=== PATIENT | female | born 1950 | race Caucasian/White ===

== ENCOUNTER 2018-11-11 12:44 | Emergency (ER) | payer BC, MEDICARE ==
[~2018-11-11] VITALS: Ht 172.7 cm; Wt 104.0 kg
[~2018-11-11 12:44] MED LIST: AMLO10TA59 PO; HYDR-3972 PO; HYDR25TA4 PO; LISI40TA4 PO; POTA8TAB3 PO
[2018-11-11] MEDS ORDERED: lactulose 20gm/30ml cup PO ONE (16:30)
[2018-11-11 16:34] VITALS: BP 106/57
== END 2018-11-11 17:36 | disposition home or self-care (01) ==
LOC: ER 12:44
DX: K64.8 Other hemorrhoids (principal); K59.00 Constipation, unspecified; K62.89 Other specified diseases of anus and rectum; G89.29 Other chronic pain; Z88.8 Allergy status to other drugs, medicaments and biological substances; Z79.899 Other long term (current) drug therapy
CPT/HCPCS: 74018; 99283

== ENCOUNTER 2019-06-30 16:57 | Inpatient (IN) | payer BC, MEDICARE ==
[2019-06-30] VITALS (7 sets, daily range): BP systolic 118–139; BP diastolic 62–94
[~2019-06-30] VITALS: Ht 175.3 cm; Wt 123.2 kg
[2019-06-30 17:39] LABS: BASOPHILS % (AUTO) 0.8 % (0-1); EOSINOPHILS # (AUTO) 0.1 X10'3 (0-0.9); EOSINOPHILS % (AUTO) 2.6 % (0-6); LYMPHOCYTES % (AUTO) 18.6 % (21-51); MEAN CORPUSCULAR HEMOGLOBIN 23.9 PG (27.0-31.0); MEAN CORPUSCULAR HGB CONC 29.8 g/dL (33.0-36.5); MEAN PLATELET VOLUME 8.7 FL (7.4-10.4); MONOCYTES # (AUTO) 0.5 X10'3 (0-0.9); NEUTROPHILS # (AUTO) 3.9 X10'3 (1.8-7.7); PLATELET COUNT 250 X10'3 (140-440); RED CELL DISTRIBUTION WIDTH 16.4 % (11.5-14.5); WHITE BLOOD COUNT 5.6 X10'3 (4.5-11.0)
[2019-06-30 17:46] LABS: HEMATOCRIT 19.2 % (35.0-45.0); HEMOGLOBIN 5.7 g/dl (12.0-16.0)
[2019-06-30 17:55] LABS: PARTIAL THROMBOPLASTIN TIME < 20 SECONDS (22-32)
[2019-06-30 18:05] LABS: ALANINE AMINOTRANSFERASE 15 U/L (12-78); ALBUMIN 2.9 G/DL (3.4-5.0); ALBUMIN/GLOBULIN RATIO 0.9 (1.1-1.5); ALKALINE PHOSPHATASE 64 IU/L (46-116); ANION GAP 9 (8-16); ASPARTATE AMINO TRANSFERASE 11 U/L (10-37); BILIRUBIN,TOTAL 0.2 MG/DL (0.1-1.0); BLOOD UREA NITROGEN 27 MG/DL (7-18); BUN/CREATININE RATIO 22.5 (6.6-38.0); CALCIUM 8.3 MG/DL (8.5-10.1); CHLORIDE 111 MMOL/L (99-107); GLUCOSE 86 MG/DL (70-104); POTASSIUM 4.3 MMOL/L (3.5-5.1); SODIUM 144 MMOL/L (135-145); TOTAL CARBON DIOXIDE 23.7 MMOL/L (24-32); TOTAL PROTEIN 6.1 G/DL (6.4-8.2); eGFR 45 ML/MIN
[2019-06-30] MEDS ORDERED: SITA50TA PO (18:33)
--- NOTE | 2019-06-30 18:34 | NUR ---
Patient is resting comfortably in bed with her son at the bedside. Patient placed in hospital gown and on NIBP, pulse ox, and secured entrance monitor. Patient has no needs at this time. Call weller provided.
--- NOTE | 2019-06-30 18:50 | NUR ---
Greer was sent to lab for units of blood. She was returned for concern that the blood consent was not actually signed by the provider and that there was no electronic consent ordered. The provider did in fact sign for the consent. Verbal order from Ritu to insert the digital consent order.
--- NOTE | 2019-06-30 19:23 | NUR ---
Patient resting comfortably and shows no signs of transfusion reaction. Blood rate of infusion set to 150mL/hr.
[2019-06-30 19:56] LABS: OCCULT BLOOD STOOL POSITIVE (Neg)
[2019-06-30] MEDS: normal saline 1000ml 1,000 ML IV SCH (20:27)
[2019-06-30] MEDS ORDERED: ondansetron/PF 4mg/2ml inj IV PRN (20:30)
[2019-06-30] MEDS ORDERED: magnesium Cl slow-release 64mg tablet PO PRN (20:30)
[2019-06-30] MEDS ORDERED: magnesium 2GM in 50ml NS 50 ML IV PRN (20:30)
[2019-06-30] MEDS ORDERED: potassium CL 10mEq/100ml bag 100 ML IV PRN ×2 (20:30)
[2019-06-30] MEDS ORDERED: potassium Cl 20 mEq SR tablet PO PRN ×2 (20:30)
[2019-06-30] MEDS ORDERED: magnesium 4gm in 100ml NS 100 ML IV PRN (20:30)
[2019-06-30] MEDS ORDERED: dextrose ORAL solution 15 GM/59 ML bottle PO PRN ×2 (20:35)
[2019-06-30] MEDS ORDERED: dextrose 50%-water 50ml dispensing syringe IV PRN ×2 (20:35)
[2019-06-30] MEDS ORDERED: enalaprilat dihydrate 2.5mg/2ml vial IV PRN (20:35)
[2019-06-30] MEDS ORDERED: MESSAGE TO PHARMACY PO ONE (20:35)
[2019-06-30] MEDS ORDERED: glucagon, human recombinant 1mg kit SUBCUT PRN (20:35)
[2019-06-30] MEDS ORDERED: insulin Lispro (HumaLOG) vial - multi-dose SQ SCH (20:35)
[2019-06-30 20:51] LABS: HEMOGLOBIN A1C 5.1 % (4.5-6.2)
[2019-06-30] MEDS: insulin glargine (Lantus) pen - multi-dose SQ SCH (21:00)
[2019-06-30 21:24] LABS: CLARITY,URINE SLIGHTLY CLOUDY (Clear); COLOR,URINE YELLOW (Yellow); GLUCOSE, URINE NEGATIVE (Neg); KETONES,URINE NEGATIVE (Neg); LEUKOCYTE ESTERASE ,URINE SMALL (Neg); NITRITES, URINE POSITIVE (Neg); OCCULT BLOOD,URINE SMALL (Neg); PROTEIN,URINE NEGATIVE (Neg); UROBILINOGEN,URINE 0.2 E.U/dL (0.2-1.0)
[2019-06-30] MEDS ORDERED: normal saline 1000ml 1,000 ML IV ONE (21:25)
[2019-06-30] MEDS ORDERED: iohexol 300mg/ml 100ml inj. ONE (21:29)
[2019-06-30 21:32] LABS: UA COLLECTION TYPE CLN CATCH MIDSTREAM
[2019-06-30 21:34] LABS: BACTERIA,URINE 4+ /HPF (Neg); RBC,URINE 0-2 /HPF (0-2); SQUAMOUS EPITHELIAL CELL,UR FEW /LPF (FEW)
--- NOTE | 2019-06-30 22:04 | NUR ---
Patient arrived to floor around 2200 on [facility] bed from ER. A&OX4., accompanied via her son.Timo. Patient is in no apparent distress at this time.
[2019-07-01] VITALS (8 sets, daily range): BP systolic 125–139; BP diastolic 61–80
[2019-07-01] MEDS: normal saline 1000ml 1,000 ML IV SCH ×3 (01:37→22:26)
[2019-07-01 04:57] LABS: OCCULT BLOOD STOOL NEGATIVE (Neg)
[2019-07-01 05:43] LABS: BASOPHILS % (AUTO) 0.6 % (0-1); EOSINOPHILS # (AUTO) 0.1 X10'3 (0-0.9); EOSINOPHILS % (AUTO) 2.6 % (0-6); HEMATOCRIT 24.3 % (35.0-45.0); HEMOGLOBIN 7.7 g/dl (12.0-16.0); LYMPHOCYTES % (AUTO) 19.5 % (21-51); MEAN CORPUSCULAR HEMOGLOBIN 25.5 PG (27.0-31.0); MEAN CORPUSCULAR HGB CONC 31.5 g/dL (33.0-36.5); MEAN CORPUSCULAR VOLUME 80.7 FL (78-98); MEAN PLATELET VOLUME 8.6 FL (7.4-10.4); MONOCYTES # (AUTO) 0.5 X10'3 (0-0.9); MONOCYTES % (AUTO) 8.4 % (2-12); NEUTROPHILS # (AUTO) 3.7 X10'3 (1.8-7.7); NEUTROPHILS % (AUTO) 68.9 % (42-75); PLATELET COUNT 222 X10'3 (140-440); RED BLOOD COUNT 3.01 X10'6 (4.20-5.60); RED CELL DISTRIBUTION WIDTH 16.4 % (11.5-14.5); WHITE BLOOD COUNT 5.4 X10'3 (4.5-11.0)
[2019-07-01 05:44] LABS: ALBUMIN 2.7 G/DL (3.4-5.0); ANION GAP 10 (8-16); BLOOD UREA NITROGEN 20 MG/DL (7-18); BUN/CREATININE RATIO 20.4 (6.6-38.0); CALCIUM 8.5 MG/DL (8.5-10.1); CHLORIDE 110 MMOL/L (99-107); CREATININE 0.98 MG/DL (0.40-0.90); GLUCOSE 95 MG/DL (70-104); POTASSIUM 3.8 MMOL/L (3.5-5.1); SODIUM 144 MMOL/L (135-145); TOTAL CARBON DIOXIDE 24.2 MMOL/L (24-32); eGFR 56 ML/MIN
--- NOTE | 2019-07-01 05:45 | NUR ---
Patient received 2 units of PRBC at 300cc each and 400cc NS.
--- NOTE | 2019-07-01 06:30 | NUR ---
Patient in room PCU 3018. I have received report from Destini PEACOCK and had the opportunity to ask questions and assume patient care.
--- NOTE | 2019-07-01 06:50 | NUR ---
Patient in room PCU 3018. I have received report from Destini PEACOCK and had the opportunity to ask questions and assume patient care. Patient asleep in bed. In no acute distress. Will continue to monitor.
--- NOTE | 2019-07-01 06:52 | NUR ---
Problems reprioritized. Patient report given, questions answered & plan of care reviewed with Markus PEACOCK.
[2019-07-01] MEDS: ESOMEPRAZOLE 40 MG VIAL IV SCH ×2 (08:48→19:13)
--- NOTE | 2019-07-01 08:48 | NUR ---
IV Nexium 40 mg administered using 2 patient identifiers. Computer did not save record of administration.
[2019-07-01] MEDS: K and/or MAG REPLACEMENT MC SCH (08:57)
[2019-07-01 09:51] LABS: HEMATOCRIT 23.3 % (35.0-45.0); HEMOGLOBIN 7.4 g/dl (12.0-16.0); MEAN CORPUSCULAR HEMOGLOBIN 25.5 PG (27.0-31.0); MEAN CORPUSCULAR HGB CONC 31.5 g/dL (33.0-36.5); MEAN CORPUSCULAR VOLUME 80.8 FL (78-98); MEAN PLATELET VOLUME 8.7 FL (7.4-10.4); PLATELET COUNT 196 X10'3 (140-440); RED BLOOD COUNT 2.88 X10'6 (4.20-5.60); RED CELL DISTRIBUTION WIDTH 15.9 % (11.5-14.5); WHITE BLOOD COUNT 4.6 X10'3 (4.5-11.0)
[2019-07-01] MEDS ORDERED: pneumococcal 23-VAL P-sac vacc 25 mcg/0.5ml vial IMVAC ONE (09:55)
[2019-07-01] MEDS ORDERED: FLUT16SP2 BOTHNARES (11:05)
[2019-07-01] MEDS ORDERED: LORazepam 2 mg/ml vial IV ONE ×2 (11:50→12:40)
--- NOTE | 2019-07-01 11:50 | NUR ---
New order from Dr. Martínez: 1 mg IV ativan. May repeat 30 minutes later if necessary for MRI.
--- NOTE | 2019-07-01 14:20 | NUR ---
WOUND INFECTION EDUCATION PROVIDED BY WOUND CARE 1. Patient instructed to call their primary doctor, or go the ED immediately if any of the following symptoms occur: * Increased pain in wound * Increase in drainage from the wound * Redness in the skin surrounding the wound * Warmth in the skin surrounding the wound * Bleeding from the wound * Temperature of 101 or greater 2. If any of these occur while in the hospital tell a nurse immediately. Addendum: 07/01/19 at 1423 by Reyna Morgan RN Amended: Links added.
[2019-07-01 15:03] LABS: HEMATOCRIT 22.5 % (35.0-45.0); HEMOGLOBIN 7.1 g/dl (12.0-16.0); MEAN CORPUSCULAR HEMOGLOBIN 25.7 PG (27.0-31.0); MEAN CORPUSCULAR HGB CONC 31.8 g/dL (33.0-36.5); MEAN CORPUSCULAR VOLUME 80.7 FL (78-98); MEAN PLATELET VOLUME 8.5 FL (7.4-10.4); PLATELET COUNT 197 X10'3 (140-440); RED BLOOD COUNT 2.78 X10'6 (4.20-5.60); RED CELL DISTRIBUTION WIDTH 16.5 % (11.5-14.5); WHITE BLOOD COUNT 4.7 X10'3 (4.5-11.0)
--- NOTE | 2019-07-01 18:33 | NUR ---
Problems reprioritized. Patient report given, questions answered & plan of care reviewed with Britton PEACOCK. Patient stable at transfer of care.
--- NOTE | 2019-07-01 18:34 | NUR ---
Patient in room PCU 3018. I have received report from AYUSH Marinelli and had the opportunity to ask questions and assume patient care.
[2019-07-01] MEDS: insulin glargine (Lantus) pen - multi-dose SQ SCH (21:00)
[2019-07-01] MEDS: CefTRIAXone/D5W-Rocephin 1gm 50 ML IV SCH (21:37)
[2019-07-01 21:45] LABS: HEMATOCRIT 23.1 % (35.0-45.0); HEMOGLOBIN 7.2 g/dl (12.0-16.0); MEAN CORPUSCULAR HEMOGLOBIN 25.3 PG (27.0-31.0); MEAN CORPUSCULAR HGB CONC 31.3 g/dL (33.0-36.5); MEAN PLATELET VOLUME 9.1 FL (7.4-10.4); PLATELET COUNT 186 X10'3 (140-440); RED BLOOD COUNT 2.86 X10'6 (4.20-5.60); RED CELL DISTRIBUTION WIDTH 16.1 % (11.5-14.5); WHITE BLOOD COUNT 5.2 X10'3 (4.5-11.0)
[2019-07-02] VITALS (8 sets, daily range): BP systolic 106–138; BP diastolic 59–74
[2019-07-02 03:25] LABS: BASOPHILS % (AUTO) 0.7 % (0-1); EOSINOPHILS # (AUTO) 0.2 X10'3 (0-0.9); EOSINOPHILS % (AUTO) 3.4 % (0-6); HEMATOCRIT 23.7 % (35.0-45.0); HEMOGLOBIN 7.4 g/dl (12.0-16.0); LYMPHOCYTES # (AUTO) 1.1 X10'3 (1.1-4.8); LYMPHOCYTES % (AUTO) 20.9 % (21-51); MEAN CORPUSCULAR HEMOGLOBIN 25.2 PG (27.0-31.0); MEAN CORPUSCULAR VOLUME 81.3 FL (78-98); MEAN PLATELET VOLUME 8.5 FL (7.4-10.4); MONOCYTES # (AUTO) 0.5 X10'3 (0-0.9); MONOCYTES % (AUTO) 8.5 % (2-12); NEUTROPHILS # (AUTO) 3.5 X10'3 (1.8-7.7); NEUTROPHILS % (AUTO) 66.5 % (42-75); PLATELET COUNT 212 X10'3 (140-440); RED BLOOD COUNT 2.92 X10'6 (4.20-5.60); RED CELL DISTRIBUTION WIDTH 16.2 % (11.5-14.5); WHITE BLOOD COUNT 5.3 X10'3 (4.5-11.0)
[2019-07-02 03:28] LABS: ALBUMIN 2.6 G/DL (3.4-5.0); ANION GAP 8 (8-16); BLOOD UREA NITROGEN 19 MG/DL (7-18); BUN/CREATININE RATIO 17.1 (6.6-38.0); CALCIUM 8.4 MG/DL (8.5-10.1); CHLORIDE 107 MMOL/L (99-107); CREATININE 1.11 MG/DL (0.40-0.90); GLUCOSE 118 MG/DL (70-104); MAGNESIUM 1.8 MG/DL (1.5-2.4); POTASSIUM 3.6 MMOL/L (3.5-5.1); SODIUM 141 MMOL/L (135-145); TOTAL CARBON DIOXIDE 25.9 MMOL/L (24-32); eGFR 49 ML/MIN
--- NOTE | 2019-07-02 06:12 | NUR ---
Problems reprioritized. Patient report given, questions answered & plan of care reviewed with AYUSH Marinelli.
--- NOTE | 2019-07-02 06:32 | NUR ---
Patient in room U 3018. I have received report from Britton PEACOCK and had the opportunity to ask questions and assume patient care. Patient asleep in bed. In no acute distress.
[2019-07-02 07:33] LABS: HEMATOCRIT 24.9 % (35.0-45.0); HEMOGLOBIN 7.8 g/dl (12.0-16.0); MEAN CORPUSCULAR HEMOGLOBIN 25.5 PG (27.0-31.0); MEAN CORPUSCULAR HGB CONC 31.5 g/dL (33.0-36.5); MEAN PLATELET VOLUME 8.6 FL (7.4-10.4); PLATELET COUNT 229 X10'3 (140-440); RED BLOOD COUNT 3.07 X10'6 (4.20-5.60); RED CELL DISTRIBUTION WIDTH 16.7 % (11.5-14.5); WHITE BLOOD COUNT 5.8 X10'3 (4.5-11.0)
[2019-07-02] MEDS ORDERED: non-formulary drug (Amlodipine Besylate 10 MG) PO SCH (08:00)
[2019-07-02] MEDS ORDERED: non-formulary drug (Lisinopril* 1 TABLET) PO SCH (08:00)
[2019-07-02] MEDS: K and/or MAG REPLACEMENT MC SCH (08:00)
[2019-07-02] MEDS: amLODIPine 5mg tablet PO SCH (08:28)
[2019-07-02] MEDS: lisinopril 20mg tablet PO SCH (08:28)
[2019-07-02] MEDS: CefTRIAXone/D5W-Rocephin 1gm 50 ML IV SCH (08:28)
[2019-07-02] MEDS: ESOMEPRAZOLE 40 MG VIAL IV SCH (08:28)
[2019-07-02 09:48] LABS: FERRITIN 9 NG/ML (8-252)
[2019-07-02 09:55] LABS: % IRON SATURATION 4 % (11-46); IRON 13 UG/DL (49-151); TOTAL IRON BINDING CAPACITY 321 UG/DL (259-388)
[2019-07-02] MEDS ORDERED: traMADol 50MG tablet PO PRN (11:35)
[2019-07-02 11:39] LABS: OCCULT BLOOD STOOL POSITIVE (Neg)
--- NOTE | 2019-07-02 11:49 | NUR ---
PAGER ID: [phone] MESSAGE: Isis Melissa [phone] RE: Kinsey Garcia [id number]. Pharmacy no longer stocks fleet enema. Would you prefer mineral oil, soapsuds, or lactulose enema? Please advise. Thank you.
--- NOTE | 2019-07-02 11:57 | NUR ---
New orders from Dr. Stuart: NPO after midnight. Mineral enema tonight and again tomorrow morning for sigmoidoscopy prep.
[2019-07-02] MEDS: normal saline 1000ml 1,000 ML IV SCH (13:46)
[2019-07-02 14:56] LABS: HEMATOCRIT 22.8 % (35.0-45.0); MEAN CORPUSCULAR HEMOGLOBIN 24.9 PG (27.0-31.0); MEAN CORPUSCULAR HGB CONC 30.9 g/dL (33.0-36.5); MEAN CORPUSCULAR VOLUME 80.6 FL (78-98); MEAN PLATELET VOLUME 8.6 FL (7.4-10.4); PLATELET COUNT 202 X10'3 (140-440); RED BLOOD COUNT 2.82 X10'6 (4.20-5.60); RED CELL DISTRIBUTION WIDTH 16.4 % (11.5-14.5); WHITE BLOOD COUNT 4.7 X10'3 (4.5-11.0)
--- NOTE | 2019-07-02 15:11 | NUR ---
Received critical lab results from Erlinda. Hemoglobin 7.0, hematocrit 22.8. Primary nurse Isis PEACOCK informed.
--- NOTE | 2019-07-02 15:16 | NUR ---
Paged Dr. Stuart: PAGER ID: [phone] MESSAGE: Isis Melissa [phone]. RE: Kinsey Garcia [id number]. Critical labs: Hgb: 7, Hct: 22.8.
--- NOTE | 2019-07-02 16:54 | NUR ---
PAGER ID: [phone] MESSAGE: Isis [phone]. RE: Kinsey Patrick [id number]. Patient complains of itching to posterior back. Patient being seen by wound care for open sores that she scratches. Can we order Benadryl for patient? Thank you Dr. Stuart.
--- NOTE | 2019-07-02 17:01 | NUR ---
New order from Dr. Stuart: Benadryl 25 mg PO Q6H PRN
--- NOTE | 2019-07-02 18:44 | NUR ---
New order from Dr. Ferris 5% lidocaine patch Q12H
--- NOTE | 2019-07-02 18:45 | NUR ---
Problems reprioritized. Patient report given, questions answered & plan of care reviewed with Grace PEACOCK. Patient stable at transfer of care.
--- NOTE | 2019-07-02 19:00 | NUR ---
PAGER ID: [phone] MESSAGE: Isis Melissa [phone] RE: Kinsey Patrick [id number]. No orders yet for EGD tomorrow. Is patient still having procedure? Thank you Dr. Stuart.
--- NOTE | 2019-07-02 19:27 | NUR ---
[place] documentation: I have reviewed and agree with all interventions, assessments performed and documented by Young PEACOCK. [place] Medication Administration: For this medication-pass time frame, all medication were reviewed, dispensed, administered and documented per hospital policy by Young PEACOCK.
[2019-07-02] MEDS: insulin glargine (Lantus) pen - multi-dose SQ SCH (21:00)
--- NOTE | 2019-07-02 21:00 | NUR ---
Lab called with a critical H & H 6.07/16. Called Dr. Rivas with lab results. 1 unit of PRBC's ordered, follow up with morning CBC's.
[2019-07-02 21:22] LABS: MEAN CORPUSCULAR HEMOGLOBIN 25.2 PG (27.0-31.0); MEAN CORPUSCULAR VOLUME 81.2 FL (78-98); MEAN PLATELET VOLUME 8.8 FL (7.4-10.4); PLATELET COUNT 182 X10'3 (140-440); RED CELL DISTRIBUTION WIDTH 16.5 % (11.5-14.5); WHITE BLOOD COUNT 5.5 X10'3 (4.5-11.0)
[2019-07-02 21:29] LABS: HEMATOCRIT 21.9 % (35.0-45.0); HEMOGLOBIN 6.8 g/dl (12.0-16.0)
[2019-07-02] MEDS: diphenhydrAMINE 25mg capsule PO PRN (23:54)
[2019-07-02] MEDS: LIDOcaine 5% patch TP SCH (23:55)
[2019-07-03] VITALS (25 sets, daily range): BP systolic 93–151; BP diastolic 55–82
[2019-07-03] MEDS: mineral oil 133ml enema RC SCH ×2 (00:08→08:00)
[2019-07-03] MEDS: normal saline 1000ml 1,000 ML IV SCH ×4 (05:58→21:06)
--- NOTE | 2019-07-03 06:23 | NUR ---
Problems reprioritized. Patient report given, questions answered & plan of care reviewed with Silas PEACOCK and Debbie PEACOCK.
[2019-07-03 06:29] LABS: BASOPHILS # (AUTO) 0.1 X10'3 (0-0.2); BASOPHILS % (AUTO) 1.1 % (0-1); EOSINOPHILS # (AUTO) 0.2 X10'3 (0-0.9); EOSINOPHILS % (AUTO) 3.6 % (0-6); HEMATOCRIT 24.4 % (35.0-45.0); HEMOGLOBIN 7.8 g/dl (12.0-16.0); LYMPHOCYTES # (AUTO) 1.1 X10'3 (1.1-4.8); LYMPHOCYTES % (AUTO) 23.7 % (21-51); MEAN CORPUSCULAR HEMOGLOBIN 25.7 PG (27.0-31.0); MEAN CORPUSCULAR HGB CONC 32.1 g/dL (33.0-36.5); MEAN CORPUSCULAR VOLUME 80.3 FL (78-98); MEAN PLATELET VOLUME 8.9 FL (7.4-10.4); MONOCYTES # (AUTO) 0.5 X10'3 (0-0.9); MONOCYTES % (AUTO) 9.9 % (2-12); NEUTROPHILS # (AUTO) 2.9 X10'3 (1.8-7.7); NEUTROPHILS % (AUTO) 61.7 % (42-75); PLATELET COUNT 180 X10'3 (140-440); RED BLOOD COUNT 3.04 X10'6 (4.20-5.60); RED CELL DISTRIBUTION WIDTH 16.6 % (11.5-14.5); WHITE BLOOD COUNT 4.7 X10'3 (4.5-11.0)
[2019-07-03 06:38] LABS: ALBUMIN 2.4 G/DL (3.4-5.0); ANION GAP 10 (8-16); BLOOD UREA NITROGEN 15 MG/DL (7-18); CHLORIDE 109 MMOL/L (99-107); GLUCOSE 100 MG/DL (70-104); MAGNESIUM 1.6 MG/DL (1.5-2.4); POTASSIUM 3.6 MMOL/L (3.5-5.1); SODIUM 142 MMOL/L (135-145); TOTAL CARBON DIOXIDE 22.8 MMOL/L (24-32); eGFR 55 ML/MIN
--- NOTE | 2019-07-03 06:56 | NUR ---
Patient in room PCU 3018. I have received report from Grace and had the opportunity to ask questions and assume patient care.
--- NOTE | 2019-07-03 07:13 | NUR ---
Noc RN did not enter enema reassessment.
[2019-07-03] MEDS: pantoprazole 40mg Tablet.DR PO SCH (07:29)
[2019-07-03] MEDS: lisinopril 20mg tablet PO SCH (07:31)
[2019-07-03] MEDS: amLODIPine 5mg tablet PO SCH (07:31)
[2019-07-03] MEDS: CefTRIAXone/D5W-Rocephin 1gm 50 ML IV SCH (07:32)
[2019-07-03] MEDS: LIDOcaine 5% patch TP SCH (07:32)
[2019-07-03] MEDS: K and/or MAG REPLACEMENT MC SCH (07:33)
[2019-07-03] MEDS ORDERED: LIDOcaine Viscous 15ml cup ONE (08:35)
[2019-07-03] MEDS ORDERED: MIDAZolam 5mg/5ml vial ONE (08:35)
[2019-07-03] MEDS ORDERED: fentaNYL/PF 50MCG/1 ML 2ML syringe ONE (08:35)
--- NOTE | 2019-07-03 14:23 | NUR ---
PAGER ID: [phone] MESSAGE: [id number] can we DC the mineral oil enema now the sigmoidoscopy is done? AYUSH Rosen Ext [phone]
--- NOTE | 2019-07-03 18:15 | NUR ---
Patient in room PCU 3018. I have received report from Velma PEACOCK and had the opportunity to ask questions and assume patient care.
--- NOTE | 2019-07-03 18:18 | NUR ---
Problems reprioritized. Patient report given, questions answered & plan of care reviewed with
[2019-07-03] MEDS: insulin glargine (Lantus) pen - multi-dose SQ SCH (21:00)
[2019-07-03] MEDS: diphenhydrAMINE 25mg capsule PO PRN (21:06)
[2019-07-04 03:00] VITALS: BP 124/64
[2019-07-04 05:56] LABS: BASOPHILS % (AUTO) 0.6 % (0-1); EOSINOPHILS # (AUTO) 0.1 X10'3 (0-0.9); EOSINOPHILS % (AUTO) 3.6 % (0-6); HEMATOCRIT 25.3 % (35.0-45.0); LYMPHOCYTES # (AUTO) 0.9 X10'3 (1.1-4.8); LYMPHOCYTES % (AUTO) 21.7 % (21-51); MEAN CORPUSCULAR HEMOGLOBIN 25.5 PG (27.0-31.0); MEAN CORPUSCULAR HGB CONC 31.5 g/dL (33.0-36.5); MEAN PLATELET VOLUME 8.8 FL (7.4-10.4); MONOCYTES # (AUTO) 0.4 X10'3 (0-0.9); MONOCYTES % (AUTO) 10.2 % (2-12); NEUTROPHILS # (AUTO) 2.6 X10'3 (1.8-7.7); NEUTROPHILS % (AUTO) 63.9 % (42-75); PLATELET COUNT 171 X10'3 (140-440); RED BLOOD COUNT 3.12 X10'6 (4.20-5.60); RED CELL DISTRIBUTION WIDTH 16.8 % (11.5-14.5); WHITE BLOOD COUNT 4.1 X10'3 (4.5-11.0)
--- NOTE | 2019-07-04 06:09 | NUR ---
Problems reprioritized. Patient report given, questions answered & plan of care reviewed with Sials and Ashely RNs.
[2019-07-04 06:22] LABS: ALBUMIN 2.3 G/DL (3.4-5.0); ANION GAP 10 (8-16); BLOOD UREA NITROGEN 17 MG/DL (7-18); BUN/CREATININE RATIO 15.6 (6.6-38.0); CALCIUM 8.1 MG/DL (8.5-10.1); CHLORIDE 111 MMOL/L (99-107); CREATININE 1.09 MG/DL (0.40-0.90); GLUCOSE 97 MG/DL (70-104); MAGNESIUM 1.7 MG/DL (1.5-2.4); POTASSIUM 3.4 MMOL/L (3.5-5.1); SODIUM 144 MMOL/L (135-145); TOTAL CARBON DIOXIDE 22.9 MMOL/L (24-32); eGFR 50 ML/MIN
--- NOTE | 2019-07-04 06:38 | NUR ---
Patient in room PCU 3018. I have received report from Ravi and had the opportunity to ask questions and assume patient care.
[2019-07-04 06:48] VITALS: BP 118/70
[2019-07-04] MEDS: amLODIPine 5mg tablet PO SCH (07:22)
[2019-07-04 07:23] VITALS: BP_SYST 118
[2019-07-04] MEDS: lisinopril 20mg tablet PO SCH (07:23)
[2019-07-04] MEDS: LIDOcaine 5% patch TP SCH (07:24)
[2019-07-04] MEDS: CefTRIAXone/D5W-Rocephin 1gm 50 ML IV SCH (07:25)
[2019-07-04] MEDS: pantoprazole 40mg Tablet.DR PO SCH (07:37)
--- NOTE | 2019-07-04 07:54 | NUR ---
PAGER ID: [phone] MESSAGE: [id number] May I reinstate K and Mg replacement? AYUSH Rosen Ext [phone]
[2019-07-04] MEDS ORDERED: magnesium Cl slow-release 64mg tablet PO PRN (08:20)
[2019-07-04] MEDS ORDERED: potassium Cl 20 mEq SR tablet PO PRN ×2 (08:20)
[2019-07-04] MEDS ORDERED: magnesium 4gm in 100ml NS 100 ML IV PRN (08:20)
[2019-07-04] MEDS ORDERED: potassium CL 10mEq/100ml bag 100 ML IV PRN (08:20)
[2019-07-04] MEDS: K and/or MAG REPLACEMENT MC SCH (08:27)
--- NOTE | 2019-07-04 10:28 | NUR ---
Patient was cleared to discharge home. PIV was removed from left wrist, pt. tolerated well. Tele box removed from patient. Patient was accompanied to her car via W/C in stable condition. Wound pictures taken, which showed improvement from admission. Discharge instructions reviewed with patient and the importance of monitoring her right great toe. Patient stated she already has a follow up appointment with her primary MD. Patient was grateful for the staff at [facility].
== END 2019-07-04 09:30 | disposition home or self-care (01) | DRG 394 ==
LOC: ER 16:57 → PCU 3S 21:15 → CMPBEDREQ 21:49
PROVIDERS: ADMIT Internal Medicine; ATTEND Internal Medicine
PROC: 30233N1 Transfusion of Nonautologous Red Blood Cells into Peripheral Vein, Percutaneous Approach (ICD-10-PCS; 2019-06-30)
PROC: BW211ZZ Computerized Tomography (CT Scan) of Abdomen and Pelvis using Low Osmolar Contrast (ICD-10-PCS; 2019-06-30)
PROC: 3E0234Z Introduction of Serum, Toxoid and Vaccine into Muscle, Percutaneous Approach (ICD-10-PCS; 2019-07-01)
PROC: 30233N1 Transfusion of Nonautologous Red Blood Cells into Peripheral Vein, Percutaneous Approach (ICD-10-PCS; 2019-07-02)
PROC: 0DB68ZX Excision of Stomach, Via Natural or Artificial Opening Endoscopic, Diagnostic (ICD-10-PCS; principal; 2019-07-03)
PROC: 0DJD8ZZ Inspection of Lower Intestinal Tract, Via Natural or Artificial Opening Endoscopic (ICD-10-PCS; 2019-07-03)
DX: K64.0 First degree hemorrhoids (principal); D62 Acute posthemorrhagic anemia; N17.9 Acute kidney failure, unspecified; Z68.41 Body mass index [BMI] 40.0-44.9, adult; N39.0 Urinary tract infection, site not specified; E11.9 Type 2 diabetes mellitus without complications; G89.29 Other chronic pain; I10 Essential (primary) hypertension; K29.70 Gastritis, unspecified, without bleeding; Z96.611 Presence of right artificial shoulder joint; Z96.612 Presence of left artificial shoulder joint; Z96.642 Presence of left artificial hip joint; B96.20 Unspecified Escherichia coli [E. coli] as the cause of diseases classified elsewhere; E66.01 Morbid (severe) obesity due to excess calories; K44.9 Diaphragmatic hernia without obstruction or gangrene; K57.90 Diverticulosis of intestine, part unspecified, without perforation or abscess without bleeding; M48.061 Spinal stenosis, lumbar region without neurogenic claudication; M53.3 Sacrococcygeal disorders, not elsewhere classified; Z79.1 Long term (current) use of non-steroidal anti-inflammatories (NSAID); Z79.84 Long term (current) use of oral hypoglycemic drugs; Z79.899 Other long term (current) drug therapy; Z23 Encounter for immunization; Z88.8 Allergy status to other drugs, medicaments and biological substances
CPT/HCPCS: 36415; 36430; 43239; 45330; 72148; 74177; 76700; 76937; 80048; 80053; 81001; 82272; 82728; 82948; 83036; 83540; 83550; 83735; 85025; 85027; 85610; 85730; 86885; 86900; 86901; 86920; 87077; 87081; 87088; 87186; 88305; 88313; 88342; 90732; 99152; 99153; 99285; A4620; G0378; J0696; J1815; J2060; J2250; J3010; J7030; J7040; P9016; Q0163; Q9967